=== PATIENT | female | born 1980 | race Caucasian/White ===

== ENCOUNTER 2016-11-23 08:15 | Day surgery (SDC) | payer OTHER ==
[~2016-11-23] VITALS: Ht 160 cm; Wt 86.2 kg
[~2016-11-23 08:15] MED LIST: ATIVAN1 MG PO; CLARITIN,ALAVAR10 MG PO; DEPO-PROVER150 MG/ML IM; INDERAL LA160 MG PO; LORTAB 7.5-3251 EACH PO; MAXALT10 MG PO; NEURONTIN600 MG PO; OMEPRAZOLE40 M1 PO; PROMETHAZINE HC25 M1 PO; SKELAXIN800 MG PO; WELLBUTRIN XL300 MG PO
[2016-11-23 09:00] VITALS: BP 114/76
[2016-11-23 14:25] VITALS: BP 128/75
[2016-11-23 15:27] VITALS: BP 103/72
[2016-11-24 13:11] LABS: INTERNAL CONTROL VALID? YES
== END 2016-11-23 15:30 | disposition home or self-care (01) ==
LOC: SDC 08:15
PROVIDERS: Neurological Surgery
DX: M48.06 Spinal stenosis, lumbar region (principal); M47.816 Spondylosis without myelopathy or radiculopathy, lumbar region; M47.817 Spondylosis without myelopathy or radiculopathy, lumbosacral region; M54.5 Low back pain; F41.9 Anxiety disorder, unspecified; M19.90 Unspecified osteoarthritis, unspecified site; E78.5 Hyperlipidemia, unspecified; Z83.3 Family history of diabetes mellitus; Z87.891 Personal history of nicotine dependence
CPT/HCPCS: 72020; 76000; 84703; J0131; J0690; J1100; J1170; J2250; J2405; J2710; J2930; J3010; S0020